=== PATIENT | male | born 1960 | race Caucasian/White ===

== ENCOUNTER 2020-08-10 13:12 | Outpatient (CLI) | payer OTHER, SELFPAY ==
--- NOTE | ~2020-08-10 | XR_ITS ---
XR cervical spine 4-5V DATE: 08/10/2020 13:55 INDICATION: Chronic neck pain TECHNIQUE: Open-mouth, AP, lateral, swimmer views COMPARISON: 01/02/2018 cervical spine FINDINGS: There is straightening of the cervical spine. C1 and C2 are normally aligned and the odontoid process is intact. No fracture or dislocation or lock ed facet or prevertebral soft tissue swelling. There is ankylosis throughout the cervical spine, with some squaring of the anterior aspect of the ce rvical vertebral bodies. The findings are consistent with ankylosing spondylitis or less likely other spondyloarthropathy. IMPRESSION: Ankylosis of the cervical spine, suggesting ankylosing spondylitis Reviewed, dictated and finalized at location A.
--- NOTE | ~2020-08-10 | XR_ITS ---
XR lumbar spine 2-3V DATE: 08/10/2020 13:55 INDICATION: Chronic back pain TECHNIQUE: AP, lateral, coned lateral lumbosacral views COMPARISON: 01/02/2018 lumbar spine FINDINGS: Normal alignment of the lumbar spine. No fracture or bone destruction or spondylolisthesis. The included lower thoracic and lumbar pedicles are intact. Lumbar and lumbosacral interspaces appea r well preserved. There appears to be ankylosis of the left sacroiliac joint. Consider spondyloarthropathy, including a nkylosing spondylosis, Live's syndrome IMPRESSION: Ankylosis of left sacroiliac joint Reviewed, dictated and finalized at location A.
== END 2020-08-10 13:13 | disposition home or self-care (01) ==
PROVIDERS: Visit Provider Pain Medicine Interventional Pain Medicine
DX: G89.4 Chronic pain syndrome (principal); M47.26 Other spondylosis with radiculopathy, lumbar region; M47.27 Other spondylosis with radiculopathy, lumbosacral region; F41.1 Generalized anxiety disorder; M16.9 Osteoarthritis of hip, unspecified; F33.1 Major depressive disorder, recurrent, moderate
CPT/HCPCS: 72050; 72100

== ENCOUNTER → 2021-07-30 07:53 | Outpatient (CLI) | payer OTHER, SELFPAY ==
[2021-07-30 17:46] LABS: SARS-CoV-2 RNA PCR Negative
== END ==
PROVIDERS: PCP Family Medicine; Visit Provider Family Medicine
DX: Z20.822 Contact with and (suspected) exposure to COVID-19 (principal)
CPT/HCPCS: C9803; U0003; U0005